=== PATIENT | female | born 1990 | race Caucasian/White ===

== ENCOUNTER 2019-11-14 15:32 | Emergency (ER) | payer OTHER ==
[~2019-11-14] VITALS: Ht 165.1 cm; Wt 88.5 kg
[2019-11-14] MEDS ORDERED: Robaxin-750750 MG PO (19:13)
[2019-11-14] MEDS ORDERED: Percocet 5-3251 EACH PO (19:13)
== END 2019-11-14 19:25 | disposition home or self-care (01) ==
LOC: ER 15:32
DX: M25.552 Pain in left hip (principal); Z85.41 Personal history of malignant neoplasm of cervix uteri
CPT/HCPCS: 73502; 74177; 96374-59; 96375; 96376; 99284-25; A9270; J1170; J1200; J1885; J2405; Q9967